=== PATIENT | female | born 1980 | race Two or more races ===

== ENCOUNTER 2018-04-27 05:49 | Emergency (ER) | payer MEDICAID ==
[~2018-04-27] VITALS: Ht 149.9 cm; Wt 74.8 kg
[2018-04-27 06:45] LABS: microscopic required? YES; urine erythrocyte 2+ (NEGATIVE)
[2018-04-27 06:52] LABS: CALCIUM 8.8 mg/dL (8.5-10.1); CHLORIDE SERUM 106 mmol/L (98-107); CREATININE SERUM 0.5 mg/dL (0.6-1.0); GFR1 > 60 mL/min; GLUCOSE SERUM 125 mg/dL (74-106); POTASSIUM SERUM 3.6 mmol/L (3.5-5.1); SODIUM SERUM 140 mmol/L (136-145)
[2018-04-27 06:58] LABS: ALBUMIN 3.4 g/dL (3.4-5.0); ALKALINE PHOSPHATASE 121 U/L (46-116); ALT/SGPT 106 U/L (14-59); AMYLASE 57 U/L (25-115); AST/SGOT 55 U/L (15-37); BILIRUBIN TOTAL 0.3 mg/dL (0.20-1.00); CHOLESTEROL 184 mg/dL (<200); HDL CHOLESTEROL 50 mg/dL (40-60); LIPASE 132 IU/L (73-393); MAGNESIUM 2.3 mg/dL (1.8-2.4); TOTAL PROTEIN, SERUM 7.4 g/dL (6.4-8.2)
[2018-04-27 07:03] LABS: BASOPHIL % 0.4 % (0-2); PLATELET COUNT 351 x10^3mcL (130-400); RED CELL DISTRIBUTION WIDTH 12.8 % (11.5-14.5)
[2018-04-27 07:59] LABS: AMPHETAMINE QUAL UR NONE DETECTED (See below)
[2018-04-27 08:35] VITALS: BP 101/78
== END 2018-04-27 08:35 | disposition home or self-care (01) ==
LOC: EDBD 05:49 → ED 05:49
PROVIDERS: Emergency Medicine
DX: R51 Headache (principal); R42 Dizziness and giddiness; R00.2 Palpitations; Z98.890 Other specified postprocedural states
CPT/HCPCS: 36415; 82962; 83880; J1885; Q0092

== ENCOUNTER 2018-10-17 00:49 | Emergency (ER) | payer MEDICAID ==
[~2018-10-17] VITALS: Ht 149.9 cm; Wt 77.6 kg
[2018-10-17 01:01] VITALS: Ht 149.9 cm; Wt 77.6 kg
[2018-10-17 03:11] VITALS: BP 111/73
== END 2018-10-17 03:11 | disposition home or self-care (01) ==
LOC: ED 00:49
DX: T78.1XXA Other adverse food reactions, not elsewhere classified, initial encounter (principal); G43.909 Migraine, unspecified, not intractable, without status migrainosus; X58.XXXA Exposure to other specified factors, initial encounter
CPT/HCPCS: J1200